=== PATIENT | male | born 2005 | race Caucasian/White ===

== ENCOUNTER 2025-01-26 13:51 | Emergency (ER) | payer OTHER ==
[~2025-01-26] VITALS: Ht 165.1 cm; Wt 70.3 kg
[2025-01-26 16:50] LABS: Influenza A, PCR NEGATIVE (NEGATIVE); Influenza B, PCR NEGATIVE (NEGATIVE); Resp Syncytial Virus, PCR NEGATIVE (NEGATIVE); SARS-Cov-2 (COVID-19) PCR, MMC NEGATIVE (NEGATIVE)
== END 2025-01-26 17:02 | disposition home or self-care (01) ==
LOC: ER 13:51
PROVIDERS: Student in an Organized Health Care Education/Training Program
DX: J06.9 Acute upper respiratory infection, unspecified (principal)
CPT/HCPCS: 87081; 87430; 87637; 99283